=== PATIENT | female | born 1940 | race Caucasian/White ===

== ENCOUNTER 2016-06-27 11:15 | Day surgery (SDC) | payer MEDICARE, OTHER ==
[2016-06-26 12:32] LABS: HEMATOCRIT 36.6 % (36.0-48.0); HEMOGLOBIN 12.1 g/dL (12.0-16.0)
[2016-06-26 12:38] LABS: PARTIAL THROMBO TIME 29.6 SEC (22.5-37.2); PROTIME (NOT ORD) 13.5 SEC (12.0-14.5)
[2016-06-26 12:44] LABS: BUN (BLOOD UREA NITROGEN) 15 MG/DL (6-23); CHLORIDE, SERUM 104 MMOL/L (96-112); CO2 (CARBON DIOXIDE) 26 MMOL/L (24-34); CREATININE 0.89 MG/DL (0.55-1.02); GFR AFRICAN AMERICAN 73 ML/MIN (>=60); GFR NON AFRICAN AMERICAN 63 ML/MIN (>=60); GLUCOSE, SERUM 84 MG/DL (60-99); POTASSIUM, SERUM 3.7 MMOL/L (3.5-5.3); SODIUM, SERUM 140 MMOL/L (135-148)
--- NOTE | ~2016-06-27 | OP ---
Record Of Operation [facility] [address]. [address] NAME: MARITA MATT : 38 STATUS : [facility]#: [id number] AGE: 75 ADM/REG DATE : 06/27/16 MR#: [id number] REPORT SERV DATE: 06/27/16 DICTATED BY: DATE: REPORT STATUS : Draft TRANSCRIBED BY: MODL DATE: 06/27/16 DATE OF PROCEDURE: 06/27/2016 PREOPERATIVE DIAGNOSES: 1. 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 2. Mohs defect of the nasal tissue measuring 3 x 1 cm. POSTOPERATIVE DIAGNOSES: 1. 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 2. Mohs defect of the nasal tissue measuring 3 x 1 cm. PROCEDURE PERFORMED: 1. Surgical preparation of the defect. 2. Myocutaneous flap involving the entire right nasal dorsum measuring 5 x 6 cm. ANESTHESIA: MAC. COMPLICATIONS: None. DISPOSITION: PACU and then home. CONDITION: Stable. SPECIMENS: None. FINDINGS: Large Navin's dorsal nasal flap with excellent symmetry of the nose at conclusion. IV FLUIDS: Per Anesthesia. ESTIMATED BLOOD LOSS: 5 mL. INDICATIONS FOR PROCEDURE: Ms. Marita Matt is a 75-year-old female with basal cell carcinoma of the nasal dorsum. She presents today for operative intervention. She signed a written informed consent. DESCRIPTION OF PROCEDURE: After adequate consent was confirmed, the patient was brought to the operating room and placed on the operating room table in supine position. Monitored anesthesia care was administered. The patient was prepped and draped in sterile surgical fashion. Nose was injected with 6 mL of 1% lidocaine with 1:100,000 epinephrine. The defect was prepared. The edges were freshened with the #15 blade and Angel tenotomy scissors. Devitalized tissue was removed. The skin of the nose was widely undermined up to the glabella and the pyriform aperture on the right. An incision was made from the midline up to the first glabellar horizontal rhytide and then a relaxing incision was made laterally in the horizontal rhytide. The flap was then elevated up to the pyriform aperture and advanced down to fill the defect. The edges were trimmed and freshened and inset was Record Of Operation [facility] [address]. [address] NAME: MARITA MATT : 38 STATUS : [facility]#: [id number] AGE: 75 ADM/REG DATE : 06/27/16 MR#: [id number] REPORT SERV DATE: 06/27/16 DICTATED BY: DATE: REPORT STATUS : Draft TRANSCRIBED BY: MODL DATE: 06/27/16 excellent. This was then secured using 5-0 Vicryl in a vertical mattress fashion around the periphery. The glabellar donor site was then advanced with local tissue and closed using 5- 0 Vicryl in a vertical mattress fashion. The skin was then closed using 6-0 fast-absorbing gut suture in a running, locking fashion. Bacitracin was applied liberally. The patient was turned to the care of Anesthesia, found to have awakened from the anesthetic. She was awakened and taken to the PACU in excellent condition. KENYA/JOHN Reynold Mir MD / [id number] CC: MD Nimco Gordon M.D.
[~2016-06-27 11:15] MED LIST: C25; COZAAR100 MG PO; EXFORGE1 TAB PO; GABAPENTIN PO; LOP25 PO; LOSARTAN PO; NORV5 PO; PCET PO; PRAVAC PO; PRILO PO; T PO; TYLENOL ARTH650 MG PO
== END 2016-06-27 15:58 | disposition home or self-care (01) ==
LOC: SDC 11:15
PROVIDERS: Otolaryngology
PROC: 0KX Muscles, Transfer (ICD-10-PCS; principal; 2016-06-27 12:45)
DX: M95.0 Acquired deformity of nose (principal); C44.311 Basal cell carcinoma of skin of nose; M19.90 Unspecified osteoarthritis, unspecified site; K21.9 Gastro-esophageal reflux disease without esophagitis; E78.5 Hyperlipidemia, unspecified; I10 Essential (primary) hypertension; G50.0 Trigeminal neuralgia; E78.00 Pure hypercholesterolemia, unspecified; Z90.49 Acquired absence of other specified parts of digestive tract; Z90.89 Acquired absence of other organs; Z90.710 Acquired absence of both cervix and uterus; Z98.890 Other specified postprocedural states
CPT/HCPCS: 80048; 85014; 85018; 85610; 85730; 93005; J0690; J2250; J2370; J2405; J2710; J3010